=== PATIENT | female | born 1990 | race Caucasian/White ===

== ENCOUNTER 2017-07-28 18:04 | Emergency (ER) | payer MEDICAID ==
[~2017-07-28] VITALS: Ht 154.9 cm; Wt 118.2 kg
[~2017-07-28 18:04] MED LIST: NOCURR
[2017-07-28] MEDS ORDERED: IBUPROFEN 800 MG TABLET PO ONE (20:15)
[2017-07-28 20:24] VITALS: BP 136/72
== END 2017-07-28 20:27 | disposition home or self-care (01) ==
LOC: EMS 18:05
DX: J04.0 Acute laryngitis (principal); F12.10 Cannabis abuse, uncomplicated
CPT/HCPCS: 99282

== ENCOUNTER 2021-12-23 15:39 | Emergency (ER) | payer MEDICAID ==
[~2021-12-23] VITALS: Ht 154.9 cm; Wt 125.5 kg
[2021-12-23] MEDS ORDERED: METF-1211 PO (15:47)
[2021-12-23] MEDS ORDERED: CEPHALEXIN MONOHYDRATE 500 MG CAPSULE PO ONE (16:15)
[2021-12-23] MEDS ORDERED: DOXYCYCLINE HYCLATE 100 MG TABLET PO ONE (16:15)
[2021-12-23] MEDS ORDERED: LIDOCAINE 1% 10 ML VIAL SQ ONE (16:15)
[2021-12-23 16:37] VITALS: BP 142/95
[2021-12-23] MEDS ORDERED: DOXY-354 PO (16:40)
[2021-12-23] MEDS ORDERED: CEPH-558 PO (16:40)
[2021-12-23] MEDS ORDERED: IBUP-1554 PO (16:40)
== END 2021-12-23 17:21 | disposition home or self-care (01) ==
LOC: EMS 15:39
DX: L02.211 Cutaneous abscess of abdominal wall (principal); E11.9 Type 2 diabetes mellitus without complications; F12.90 Cannabis use, unspecified, uncomplicated; Z79.899 Other long term (current) drug therapy
CPT/HCPCS: 99283; 10060; J3490